=== PATIENT | male | born 1950 | race Caucasian/White ===

== ENCOUNTER → 2017-02-04 | Outpatient (CLI) | payer OTHER ==
[~2017-02-04] MED LIST: METHACHOLINE KIT (J7674) INH ONE
[2017-02-04 10:16] LABS: ABG BASE EXCESS 0.9 (-2.0-2.0); ABG HCO3 25.4 MEQ/L (22.0-26.0); ABG PARTIAL PRESSURE O2 95.8 mmHg (75.0-100.0); ABG STANDARD HCO3 25.3 MEQ/L (22.0-26.0); ABG TOTAL CO2 26.6 MEQ/L (23.0-31.0)
--- NOTE | 2017-02-04 10:36 | PFTRPT ---
Tech: Janie KELLY RRT Age: 66 Sex: Male Race: Height: 66.50 Inches Weight: 344.00 Lbs BSA: 2.53 Diagnosis: R06.00 TECH NOTES: Test appears to be valid, although the ATS standard for "end of test " was not met. IVC is less than 85% of VC. DLCO may be underestimated. The patient was given four puffs of albuterol for postbronchodilator. PULMONARY FUNCTION REPORT ORDERING PROVIDER: Marley Wong MD DATE OF SERVICE: 02/04/17 SPIROMETRY: Pre and post bronchodilator study of excellent technical quality. The forced vital capacity is reduced. The FEV1 is out of proportion. The obstructive index is, therefore, reduced. FLOW VOLUME LOOP: The expiratory limb of the flow volume loop is consistent with significant flow rate limitation. Favorable bronchodilator response is identified. LUNG VOLUMES: The total lung capacity is normal. The residual volume suggests air trapping. DIFFUSION CAPACITY: The diffusion capacity is normal. HEMOGLOBIN: The hemoglobin is acceptable at 14.7. AIRWAY MECHANICS: Airways resistance is elevated with a concomitant decrease in airway conductance. IMPRESSION: Moderate obstructive ventilatory impairment with underlying air trapping. Favorable bronchodilator response. MTDD
== END ==
LOC: M CARPUL 09:37
PROVIDERS: ATTEND Internal Medicine Pulmonary Disease
DX: R06.00 Dyspnea, unspecified (principal)